=== PATIENT | male | born 1980 | race Two or more races ===

== ENCOUNTER 2017-01-03 18:04 | Emergency (ER) | payer SELFPAY ==
--- NOTE | ~2017-01-03 | ER ---
PATIENT'S NAME: [facility] AGE: 36 Y [address] ROOM: [place] [address] LOCATION: [facility] ADMIT DATE: 01/03/2017 ER/Outpatient Report DISCHARGE DATE: 01/03/2017 FAMILY PHYSICIAN: , MIGEL ATTENDING PHYSICIAN: Isaias Manzo TIME OF ARRIVAL: 1805 hours. TIME OF EVALUATION: 1807 hours. CHIEF COMPLAINT: Congestion and chest pain. HISTORY OF PRESENT ILLNESS: The patient is a 36-year-old male who presents to the emergency department today with a chief complaint of congestion and chest pain. He reports that it started about 3 days prior to arrival, got worse this morning at 7 a.m. He is having a productive yellow-green cough. He does report some subjective fevers and chills. No nausea or vomiting. No diarrhea or constipation. No urinary symptoms. He has a sharp pain on the left side of his chest. No radiation. No history of DVT or PE. No hemoptysis. PAST MEDICAL HISTORY: None. PAST SURGICAL HISTORY: Right ear. SOCIAL HISTORY: The patient denies any tobacco, alcohol, or illicit drug use. ALLERGIES: NO KNOWN DRUG ALLERGIES. MEDICATIONS: None. PRIMARY CARE DOCTOR: None. REVIEW OF SYSTEMS: All systems are reviewed by myself and are negative with the exception of those discussed in the HPI and past medical history. PATIENT'S NAME: [facility] AGE: 36 Y [address] ROOM: [place] [address] LOCATION: [facility] ADMIT DATE: 01/03/2017 ER/Outpatient Report DISCHARGE DATE: 01/03/2017 FAMILY PHYSICIAN: PHYSICIAN, MIGEL ATTENDING PHYSICIAN: Isaias Manzo PHYSICAL EXAMINATION: VITAL SIGNS: Weight 139.9 kg, blood pressure 142/82, pulse 111, respiratory rate 22, temperature 100.3, and oxygen saturation 95% on room air. GENERAL: The patient is a 36-year-old male, appears stated age, obese, well developed, well nourished, in no acute distress at this time. HEENT: Normocephalic and atraumatic. Pupils are equal, round, and reactive to light. Nares with copious amounts of yellow-green discharge. Oropharynx is clear. TMs are clear. NECK: Supple. There is no nuchal rigidity. CARDIOVASCULAR: Tachycardic. No murmurs, rubs, or gallops. LUNGS: Clear to auscultation bilaterally. No wheezes, rales, or rhonchi. ABDOMEN: Soft, nontender, and nondistended. No rebound, rigidity, or guarding. MUSCULOSKELETAL: The patient moves all 4 extremities. SKIN: Warm and dry. There are no rashes or lesions noted. LABORATORY DATA AND X-RAYS: Labs and x-rays were obtained. A 2-view chest x-ray was obtained. There is questionable retrocardiac opacity that is increased from previous. EKG is obtained and is interpreted by myself at 1820 hours, shows sinus tachycardia with a rate of 110. Normal axis. Normal interval. No ST elevation, ST depression, or T-wave inversion. CBC is normal. CMP is normal. Procalcitonin is normal. Lactate is 1.7. LFTs normal. D-dimer is normal. Cardiac enzymes are normal. Influenza is negative. Urinalysis is unremarkable. IMPRESSION: 1. Acute clinical pneumonia. 2. Initial visit. EMERGENCY DEPARTMENT COURSE: The patient brought back to the examination room. Seen and evaluated by myself. IV is established. The patient is given a liter of normal saline and 1 g of Tylenol p.o. Laboratory analysis and imaging are obtained as described above. The patient is feeling better after a liter normal saline. I have discussed the results with the patient. We do have blood cultures pending. I would like [facility] for re- evaluation. I have discussed [id number] instructions including worsening symptoms or other concerns. Return to the emergency department as soon as possible. The patient is agreeable without further questions. I have recommended he not go to work if he continues to feel poorly and is having a fever. DISPOSITION: PATIENT'S NAME: [facility] AGE: 36 Y [address] ROOM: [place], [place] [address] LOCATION: [facility] ADMIT DATE: 01/03/2017 ER/Outpatient Report DISCHARGE DATE: 01/03/2017 FAMILY PHYSICIAN: PHYSICIAN, NO ATTENDING PHYSICIAN: Isaias Manzo The patient is discharged to home in good condition. DO THALIA KEENAN/morgan /[id number] d: 01/04/17 0016 t: 01/11/17 1008, OUTPATIENT REPORT
[2017-01-03 18:36] LABS: BASOPHIL % 0.5 %; EOSINOPHIL # 0.4 K/uL (0.0-0.5); EOSINOPHIL % 5.6 %; HEMATOCRIT 45.5 % (37.0-53.0); IMMATURE GRANULOCYTE % 0.3 %; LYMPHOCYTE # 1.1 K/uL (0.8-4.0); LYMPHOCYTE % 14.2 %; MCH 28.7 pg (27.0-34.0); MCV 87.2 fl (83.0-98.0); MONOCYTE # 0.8 K/uL (0.0-1.0); MONOCYTE % 10.4 %; MPV 11.2 fl (9.4-12.4); NEUTROPHIL # (ANC) 5.4 K/uL (1.4-9.0); NRBC % 0 /100WBC (0-0.00); PLATELET COUNT 196 K/uL (150-450); RBC 5.22 M/uL (4.00-6.00); WBC 7.9 K/uL (4.0-11.0)
[2017-01-03 18:59] LABS: ALBUMIN 3.9 gm/dL (3.5-5.0); ALK PHOS 128 IU/L (33-138); ALT 58 IU/L (12-78); ANION GAP 10.7 (10.0-19.0); AST 30 IU/L (10-40); BLOOD UREA NITROGEN 16 mg/dL (6-24); CALCIUM 8.4 mg/dL (8.5-10.5); CHLORIDE 107 mMol/L (96-110); CO2 28 mMol/L (22-32); CPK 132 IU/L (35-332); ESTIMATED GFR (MDRD EQUATION) > 60; POTASSIUM 3.7 mMol/L (3.7-5.1); SODIUM 142 mMol/L (135-145); TOTAL BILIRUBIN 0.2 mg/dL (0.0-1.5); TOTAL PROTEIN 7.4 g/dL (6.0-8.4)
[2017-01-03 19:06] LABS: BILIRUBIN URINE NEGATIVE (NEGATIVE); BLOOD URINE NEGATIVE /UL (NEGATIVE); COLOR URINE YELLOW (YELLOW); GLUCOSE URINE NEGATIVE (NEGATIVE); KETONE URINE NEGATIVE (NEGATIVE); LEUKOCYTES URINE 25 /UL (NEGATIVE); NITRITE URINE NEGATIVE (NEGATIVE); PROTEIN URINE 30 mg/dL (NEGATIVE); SPEC GRAVITY URINE 1.015 (1.003-1.035); TURBIDITY URINE CLEAR (CLEAR); UROBILINOGEN URINE 8 mg/dL (NORMAL)
[2017-01-03 19:21] LABS: BACTERIA URINE FEW (NEGATIVE); RBC URINE NEGATIVE #/HPF (NEGATIVE)
== END 2017-01-03 19:59 | disposition disaster alternative care site (69) ==
LOC: GMED 18:04
PROVIDERS: Emergency Medicine
DX: J18.9 Pneumonia, unspecified organism (principal)
CPT/HCPCS: J7030